=== PATIENT | female | born 1945 | race Caucasian/White ===

== ENCOUNTER 2018-09-06 22:16 | Emergency (ER) | payer OTHER ==
[2018-09-06 22:34] VITALS: BP 160/74; PULSE 77; TEMP 98; BMI 27.0
--- NOTE | 2018-09-06 23:26 | PDOC ---
*Physical Exam - Vital Signs Last Vital Signs Temp Pulse Resp BP Pulse Ox 98.0 F 77 16 160/74 100 09/06/18 22:26 09/06/18 22:26 09/06/18 22:26 09/06/18 22:26 09/06/18 22:26 Medical Decision Making - Medical Decision Making 09/06/18 23:25 Patient seen by the advanced practice provider under my direct supervision. Ancillary testing reviewed as necessary. I agree with plan as outlined by the advanced practice provider. *DC/Admit/Observation/Transfer Diagnosis at time of Disposition: Insect bite Qualifiers: Encounter type: initial encounter Site of insect bite: thigh Laterality: left Qualified Code(s): S70.362A - Insect bite (nonvenomous), left thigh, initial encounter - Discharge Dispostion Disposition: HOME - Prescriptions Prescriptions: Hydrocortisone 1% Ointment [Hytone 1% Ointment -] 1 applic TP BID #1 tube - Referrals Referrals: Mary Barber MD [Primary Care Provider] - 2 Days (wound check) - Patient Instructions Printed Discharge Instructions: DI for Insect Bites and Stings Additional Instructions: apply ice to the area apply hydrocortisone to the area as prescribed follow up with your doctor in 2 days for a wound check. - Post Discharge Activity
[2018-09-06] MEDS ORDERED: diphenhydrAMINE HCL 25 MG CAPSULE (FP) PO ONE ×2 (23:31→23:39)
--- NOTE | 2018-09-06 23:37 | PDOC ---
History of Present Illness - General Chief Complaint: Bite Stated Complaint: BITE Time Seen by Provider: 09/06/18 23:13 History Source: Patient - History of Present Illness Initial Comments: 09/06/18 23:32 73 year old female was putting her pajamas on felt an insect bite to left upper thigh prior to arrival. reports itchiness and stinging feeling at the site. no streaking noted pMHX: hypertension/ high cholesterol. 09/07/18 04:20 Past History - Past Medical History Allergies/Adverse Reactions: Allergies Allergy/AdvReac Type Severity Reaction Status Date / Time No Known Allergies Allergy Verified 09/06/18 22:28 Home Medications: Ambulatory Orders Leflunomide 20 mg PO DAILY 02/17/14 Montelukast Na [Singulair -] 10 mg PO DAILY 02/17/14 Omeprazole [Prilosec] 20 mg PO DAILY 02/17/14 Risperidone [Risperidone Odt] 3 mg PO BID 02/17/14 Aspirin [Ecotrin] 81 mg PO DAILY 12/21/14 Ranitidine [Zantac -] 150 mg PO BID 12/21/14 Fluticasone/Salmeterol [Advair 250-50 Diskus] 1 each IH BID 12/24/14 Paroxetine HCl [Paxil] 20 mg PO DAILY 12/24/14 Cholecalciferol (Vitamin D3) [Vitamin D] 5,000 unit PO DAILY 02/04/15 Losartan Potassium [Cozaar -] 100 mg PO DAILY 02/04/15 Prednisone 10 mg PO DAILY #30 tablet 02/11/15 Sotalol HCl [Betapace -] 80 mg PO BID #60 tablet 02/11/15 Famotidine [Pepcid] 40 mg PO DAILY #30 tablet MDD 1 01/06/16 Hydrocortisone 1% Ointment [Hytone 1% Ointment -] 1 applic TP BID #1 tube Asthma: Yes COPD: No Diabetes: Yes (BORDERLINE) GI Disorders: Yes (HEMORROIDS) HTN: Yes Hypercholesterolemia: Yes Psychiatric Problems: Yes (depression) - Suicide/Smoking/Psychosocial Hx Smoking Status: Yes Smoking History: Unknown if ever smoked Have you smoked in the past 12 months: No Number of Cigarettes Smoked Daily: 0 Information on smoking cessation initiated: No Hx Alcohol Use: No Drug/Substance Use Hx: No Substance Use Type: None Hx Substance Use Treatment: No Review of Systems - Review of Systems Able to Perform ROS?: Yes Is the patient limited Urdu proficient: No Constitutional: No: Symptoms Reported, See HPI, Chills, Diaphoresis, Fever, Loss of Appetite, Malaise, Night Sweats, Weakness, Weight Stable, Unintentional Wgt. Loss, Unexplained wgt Loss, Other Integumentary: Yes: Pruritus *Physical Exam - Vital Signs Last Vital Signs Temp Pulse Resp BP Pulse Ox 98.0 F 77 16 160/74 100 09/06/18 22:26 09/06/18 22:26 09/06/18 22:26 09/06/18 22:26 09/06/18 22:26 - Physical Exam General Appearance: Yes: Appropriately Dressed Extremity: positive: Erythema (to left upper thigh ) Integumentary: positive: Normal Color, Dry, Warm Neurologic: positive: Fully Oriented, Alert, Normal Mood/Affect Progress Note - Progress Note Progress Note: Insect bite P: hydrocortisone benadryl *DC/Admit/Observation/Transfer Diagnosis at time of Disposition: Insect bite Qualifiers: Encounter type: initial encounter Site of insect bite: thigh Laterality: left Qualified Code(s): S70.362A - Insect bite (nonvenomous), left thigh, initial encounter - Discharge Dispostion Disposition: HOME Condition at time of disposition: Stable - Prescriptions Prescriptions: Hydrocortisone 1% Ointment [Hytone 1% Ointment -] 1 applic TP BID #1 tube - Referrals Referrals: Mary Barber MD [Primary Care Provider] - 2 Days (wound check) - Patient Instructions Printed Discharge Instructions: DI for Insect Bites and Stings Additional Instructions: apply ice to the area apply hydrocortisone to the area as prescribed follow up with your doctor in 2 days for a wound check. - Post Discharge Activity
== END 2018-09-07 00:17 | disposition home or self-care (01) ==
LOC: JER 22:16
DX: S70.362A Insect bite (nonvenomous), left thigh, initial encounter (principal); W57.XXXA Bitten or stung by nonvenomous insect and other nonvenomous arthropods, initial encounter; Y93.89 Activity, other specified; Y92.032 Bedroom in apartment as the place of occurrence of the external cause; Y99.8 Other external cause status; I10 Essential (primary) hypertension; E78.00 Pure hypercholesterolemia, unspecified; E11.9 Type 2 diabetes mellitus without complications; J45.909 Unspecified asthma, uncomplicated
CPT/HCPCS: 99281-25

== ENCOUNTER 2018-11-17 16:18 | Emergency (ER) | payer OTHER ==
[2018-11-17 16:34] VITALS: BP 137/67; PULSE 67; TEMP 99.4; BMI 27.3
--- NOTE | 2018-11-17 16:35 | PDOC ---
Rapid Medical Evaluation Chief Complaint: Urinary Problem Time Seen by Provider: 11/17/18 16:29 Medical Evaluation: Allergies Allergy/AdvReac Type Severity Reaction Status Date / Time No Known Allergies Allergy Verified 09/06/18 22:28 11/17/18 16:30 73 year old female c/o urinary frequency, dysuria and suprapubis pain. treated for UTI 2 months ago. PE: patient alert ox3. A: urinary symptoms P: ua urine culture Discharge Disposition - Diagnosis Urinary frequency - Referrals - Patient Instructions - Post Discharge Activity
--- NOTE | 2018-11-17 16:50 | PDOC ---
History of Present Illness - General Chief Complaint: Urinary Problem Stated Complaint: URINARY PROBLEM Time Seen by Provider: 11/17/18 16:29 Past History - Past Medical History Allergies/Adverse Reactions: Allergies Allergy/AdvReac Type Severity Reaction Status Date / Time No Known Allergies Allergy Verified 11/17/18 16:34 Home Medications: Ambulatory Orders Leflunomide 20 mg PO DAILY 02/17/14 Montelukast Na [Singulair -] 10 mg PO DAILY 02/17/14 Omeprazole [Prilosec] 20 mg PO DAILY 02/17/14 Risperidone [Risperidone Odt] 3 mg PO BID 02/17/14 Aspirin [Ecotrin] 81 mg PO DAILY 12/21/14 Ranitidine [Zantac -] 150 mg PO BID 12/21/14 Fluticasone/Salmeterol [Advair 250-50 Diskus] 1 each IH BID 12/24/14 Paroxetine HCl [Paxil] 20 mg PO DAILY 12/24/14 Cholecalciferol (Vitamin D3) [Vitamin D] 5,000 unit PO DAILY 02/04/15 Losartan Potassium [Cozaar -] 100 mg PO DAILY 02/04/15 Prednisone 10 mg PO DAILY #30 tablet 02/11/15 Sotalol HCl [Betapace -] 80 mg PO BID #60 tablet 02/11/15 Famotidine [Pepcid] 40 mg PO DAILY #30 tablet MDD 1 01/06/16 Hydrocortisone 1% Ointment [Hytone 1% Ointment -] 1 applic TP BID #1 tube Acetaminophen [Tylenol -] 650 mg PO Q6H PRN #30 tablet 11/17/18 Cephalexin [Keflex] 500 mg PO BID #10 capsule 11/17/18 Phenazopyridine HCl [Pyridium] 100 mg PO BID #6 tablet 11/17/18 Asthma: Yes COPD: No Diabetes: Yes (BORDERLINE) GI Disorders: Yes (HEMORROIDS) HTN: Yes Hypercholesterolemia: Yes Psychiatric Problems: Yes (depression) Other medical history: ARTHRITIS - Immunization History Immunization Up to Date: Yes - Psycho Social/Smoking Cessation Hx Smoking Status: Yes Smoking History: Never smoked Have you smoked in the past 12 months: No Number of Cigarettes Smoked Daily: 0 Information on smoking cessation initiated: No Hx Alcohol Use: No Drug/Substance Use Hx: No Substance Use Type: None Hx Substance Use Treatment: No *Physical Exam - Vital Signs Last Vital Signs Temp Pulse Resp BP Pulse Ox 99.4 F 67 18 137/67 98 11/17/18 16:28 11/17/18 16:28 11/17/18 16:28 11/17/18 16:28 11/17/18 16:28 ED Treatment Course - LABORATORY CBC & Chemistry Diagram: 11/17/18 17:35 11/17/18 17:35 Medical Decision Making - Medical Decision Making HPI: 73yo F with PMH of HTN, HLD, asthma, arthritis presenting with urinary symptoms since Wednesday. Patient had similar symptoms two months ago when she was diagnosed with a UTI and treated with antibiotics x 10 days (does not know which ). She finished the entire course and felt better, however, the dysuria, urgency , and retention has returned. She urinates about three times during the day and twice at night. Endorsing generalized weakness and poor appetite. No hematuria. Denies fevers, chills, chest pain, or shortness of breath. PCP: Dr. Bedoya ROS: Constitutional: no fever, no chills HEENT: no throat pain, no dysphagia Cardiovascular: no chest pain, no palpitations Respiratory: no cough, no shortness of breath Gastrointestinal: +abdominal pain, no nausea Genitourinary: +dysuria, +retention Musculoskeletal: no myalgia, no arthralgia Skin: no rash, no itching Neurologic: no headache, +weakness PE: General: Awake, alert, and fully oriented, in no acute distress Head: No signs of trauma Eyes: EOMI, sclera anicteric ENT: Moist mucus membranes Neck: Normal ROM, supple Lungs: Lungs clear, Normal breath sounds Cardio: Regular rhythm, S1 and S2 present Abdomen: Tender to palpation in suprapubic area, Soft, nondistended. No guarding , no rebound, no masses. No CVA tenderness Extremities: Normal range of motion, Distal pulses present SKIN: Warm, Dry, normal turgor Neurologic: Cranial nerves II through XII grossly intact. Normal speech ED Course/MDM: DDX including but not limited to UTI, pyelonephritis, nephrolithisis, bladder CA , PID, urethritis, interstitial cystitis Labs 11/17/18 16:50 Per chart review, patient never had positive urine culture here Call over to [facility] to ascertain previous antibiotic course Patient received Bactrim x 10 days, filled on 10/03/18 Since she received bactrim in the prior 3 months, we will treat with another antibiotic 11/17/18 17:17 CBC WBC 9.8 K/mm3 (4.0-10.0) 11/17/18 17:35 RBC 4.11 M/mm3 (3.60-5.2) 11/17/18 17:35 Hgb 11.4 GM/dL (10.7-15.3) 11/17/18 17:35 Hct 34.3 % (32.4-45.2) 11/17/18 17:35 MCV 83.3 fl (80-96) 11/17/18 17:35 MCH 27.8 pg (25.7-33.7) 11/17/18 17:35 MCHC 33.3 g/dl (32.0-36.0) 11/17/18 17:35 RDW 14.3 % (11.6-15.6) 11/17/18 17:35 Plt Count 170 K/MM3 (134-434) 11/17/18 17:35 MPV 8.2 fl (7.5-11.1) 11/17/18 17:35 Absolute Neuts (auto) 6.2 K/mm3 (1.5-8.0) 11/17/18 17:35 Neutrophils % 63.9 % (42.8-82.8) D 11/17/18 17:35 Lymphocytes % 26.1 % (8-40) D 11/17/18 17:35 Monocytes % 8.4 % (3.8-10.2) 11/17/18 17:35 Eosinophils % 0.9 % (0-4.5) 11/17/18 17:35 Basophils % 0.7 % (0-2.0) 11/17/18 17:35 Nucleated RBC % 0 % (0-0) 11/17/18 17:35 No leukocytosis UA with 1+ protein, 2+ blood, + nitrite, 3+ LE, 6032 bacteria, 1.4 epithelias We will treat with keflex 11/17/18 18:01 CMP Sodium 137 mmol/L (136-145) 11/17/18 17:35 Potassium 4.2 mmol/L (3.5-5.1) 11/17/18 17:35 Chloride 105 mmol/L (98-107) 11/17/18 17:35 Carbon Dioxide 23 mmol/L (21-32) 11/17/18 17:35 Anion Gap 9 MMOL/L (8-16) 11/17/18 17:35 BUN 23.2 mg/dL (7-18) H 11/17/18 17:35 Creatinine 0.8 mg/dL (0.55-1.3) 11/17/18 17:35 Est GFR (CKD-EPI)AfAm 83.59 11/17/18 17:35 Est GFR (CKD-EPI)NonAf 72.12 11/17/18 17:35 Random Glucose 98 mg/dL (74-106) 11/17/18 17:35 Calcium 9.6 mg/dL (8.5-10.1) 11/17/18 17:35 Total Bilirubin 0.6 mg/dL (0.2-1) 11/17/18 17:35 AST 18 U/L (15-37) 11/17/18 17:35 ALT 24 U/L (13-61) 11/17/18 17:35 Alkaline Phosphatase 106 U/L (45-117) 11/17/18 17:35 Total Protein 8.0 g/dl (6.4-8.2) 11/17/18 17:35 Albumin 4.2 g/dl (3.4-5.0) 11/17/18 17:35 Electrolytes unremarkable Normal Cr BUn elevated, at patient's baseline Keflex, pyridium, and tylenol sent to pharmacy Dysuria caused by confirmed UTI I do not suspect an obstructive urologic process; patient is hemodynamically stable and able to tolerate po. Safe for discharge. 11/17/18 18:37 Discharge - Discharge Information Problems reviewed: Yes Clinical Impression/Diagnosis: UTI (urinary tract infection) Qualifiers: Urinary tract infection type: site unspecified Hematuria presence: with hematuria Qualified Code(s): N39.0 - Urinary tract infection, site not specified ; R31.9 - Hematuria, unspecified Condition: Stable Disposition: HOME - Additional Discharge Information Prescriptions: Acetaminophen [Tylenol -] 650 mg PO Q6H PRN #30 tablet PRN Reason: Pain Cephalexin [Keflex] 500 mg PO BID #10 capsule Phenazopyridine HCl [Pyridium] 100 mg PO BID #6 tablet - Follow up/Referral Referrals: Leeanna Bedoya MD [Primary Care Provider] - - Patient Discharge Instructions Patient Printed Discharge Instructions: DI for Urinary Tract Infection (UTI) Additional Instructions: You came into the emergency department for pain when you urinate. Urinalysis shows you have a urinary tract infection. Antibiotics prescription has been sent to your pharmacy. We also sent a medicine called aiden to help with the burning when you urinate. Be aware that this medicine may turn your urine orange. Follow up with your primary care physician within 72 hours to discuss this ED visit and for further evaluation of your symptoms. Call tomorrow morning and make an appointment. Your care is not complete until you do so. Immediate medical attention is required if you experience: high fevers, chills , persistent vomiting, stop urinating, or any new or concerning symptoms.If you think you have an emergency, call for medical help right away. === Lleg al departamento de emergencias por dolor al orinar. El anlisis de orina muestra que tiene ronal infeccin del tracto urinario. Se dasilva enviado ronal receta de antibiticos a mendoza farmacia. Tambin enviamos un medicamento llamado piridio para ayudar con el ardor al orinar. Tenga en cuenta que paz medicamento puede convertir mendoza orina en naranja. Yakelin un seguimiento con mendoza mdico de atencin primaria dentro de las 72 horas para analizar esta visita al servicio de urgencias y para ronal evaluacin adicional de corey sntomas. Llame maana por la maana y yakelin ronal bashir. Mendoza atencin no estar completa hasta que lo yakelin. Se requiere atencin mdica inmediata si experimenta fiebre rico, escalofros, vmitos persistentes, maximilian de orinar o cualquier sntoma nuevo o preocupante. Si mary que tiene ronal emergencia, solicite ayuda mdica de inmediato. - Post Discharge Activity
--- NOTE | 2018-11-17 16:58 | PDOC ---
Attending Attestation - Resident Resident Name: Yoanna Medrano - ED Attending Attestation I have performed the following: I have examined & evaluated the patient, The case was reviewed & discussed with the resident, I agree w/resident's findings & plan - HPI HPI: 11/17/18 17:15 73 YOF with htn/hld, asthma , UTI 2 months ago presenting with urinary frequency , urgency, dysuria and suprapubic abdominal pain. - Physicial Exam PE: 11/17/18 17:16 Agree with the resident's HPI and PE as documented in the electronic medical record. NAD, well appearing, EOMI, PERRL, MMM, nl conjunctiva, anicteric; neck supple. lungs clear, RRR, abdomen soft suprapubic TTP, no CVAT. no rebound or guarding. Back nontender. CERDA x4, no focal neuro deficits. No peripheral edema. normal color for ethnicity, WWP. right club foot (chronic) 11/17/18 18:15 - Medical Decision Making 11/17/18 17:16 Vital Signs Temp Pulse Resp BP Pulse Ox 99.4 F 67 18 137/67 98 11/17/18 16:28 11/17/18 16:28 11/17/18 16:28 11/17/18 16:28 11/17/18 16:28 no fever, VS reviewed and anl UA and culture sent prelim UA +nitrites, WBC and leuk esterase, librado with E.coli infection given + nitrites. labs and lytes unremarkable. no systemic findings to suggest complicated infection keflex x 5 days pyridium for burning/dysuria. caution of side effects. discharge stable condition. return precautions such as f/c, worsening pain, vomiting, dehydration. PCP followup, f/u urine culture antibiotics x 5d course. 11/17/18 18:05 11/17/18 18:15 11/17/18 18:16
[2018-11-17 17:47] LABS: BASO % 0.7 % (0-2.0); EOS % 0.9 % (0-4.5); HEMATOCRIT 34.3 % (32.4-45.2); HEMOGLOBIN 11.4 GM/dL (10.7-15.3); LYMPH % 26.1 % (8-40); MCH 27.8 pg (25.7-33.7); MCHC 33.3 g/dl (32.0-36.0); MEAN CELL VOLUME 83.3 fl (80-96); MEAN PLT VOLUME 8.2 fl (7.5-11.1); MONO % 8.4 % (3.8-10.2); NEUT % 63.9 % (42.8-82.8); PLATELET COUNT 170 K/MM3 (134-434); RBC 4.11 M/mm3 (3.60-5.2); RDW 14.3 % (11.6-15.6); WHITE BLOOD COUNT 9.8 K/mm3 (4.0-10.0)
[2018-11-17 17:54] LABS: EPI CELLS 1.4 /HPF (0-5/HPF); HYALINE CASTS 6 /lpf (0-8); PH,URINE 6.5 (5.0-8.0); URINE APPEARANCE CLOUDY; URINE BACTERIA 6032.8 /hpf (NEGATIVE); URINE BILIRUBIN NEGATIVE (NEGATIVE); URINE COLOR YELLOW; URINE GLUCOSE (UA) NEGATIVE (NEGATIVE); URINE KETONE NEGATIVE (NEGATIVE); URINE LEUK ESTERASE 3+ (NEGATIVE); URINE NITRITE POSITIVE (NEGATIVE); URINE PROTEIN 1+ (NEGATIVE); URINE RBC 10 /hpf (0-4); URINE UROBILINOGEN 0.2 mg/dL (0.2-1.0); URINE WBC 403 /hpf (0-5)
[2018-11-17] MEDS ORDERED: CEPHALEXIN MONOHYDRATE 500 MG CAPSULE (UD) ONE ×2 (17:58→18:24)
[2018-11-17] MEDS ORDERED: CEPHALEXIN MONOHYDRATE 500 MG CAPSULE (UD) PO ONE (18:06)
[2018-11-17] MEDS ORDERED: ACETAMINOPHEN 325 MG TABLET (FP) PO ONE (18:17)
[2018-11-17] MEDS ORDERED: PHENAZOPYRIDINE HCL 100 MG TABLET (FP) PO ONE ×2 (18:17→18:30)
[2018-11-17 18:23] LABS: ALBUMIN 4.2 g/dl (3.4-5.0); BILIRUBIN,TOTAL 0.6 mg/dL (0.2-1); BLOOD UREA NITROGEN 23.2 mg/dL (7-18); CALCIUM 9.6 mg/dL (8.5-10.1); CREATININE 0.8 mg/dL (0.55-1.3); POTASSIUM 4.2 mmol/L (3.5-5.1)
[2018-11-17] MEDS ORDERED: ACETAMINOPHEN 325 MG TABLET (FP) ONE (18:40)
[2018-11-17] MEDS ORDERED: PHENAZOPYRIDINE HCL 100 MG TABLET (FP) ONE (18:41)
== END 2018-11-17 18:32 | disposition home or self-care (01) ==
LOC: JER 16:18
DX: N39.0 Urinary tract infection, site not specified (principal); R31.9 Hematuria, unspecified; I10 Essential (primary) hypertension; E78.5 Hyperlipidemia, unspecified; J45.909 Unspecified asthma, uncomplicated; M12.9 Arthropathy, unspecified; Z87.440 Personal history of urinary (tract) infections
CPT/HCPCS: 36415; 80053; 81003; 85025; 87086; 87186; 99282-25

== ENCOUNTER 2023-06-24 18:02 | Inpatient (IN) | payer OTHER ==
[2023-06-24 18:07] VITALS: BMI 25.7
[2023-06-24] MEDS ORDERED: ACETAMINOPHEN INJECTION 100 ML IVPB ONE (18:50)
[2023-06-24] MEDS: ACETAMINOPHEN 1000 MG/100 ML BAG IVPB ONE (19:11)
[2023-06-24 19:16] LABS: BASO % 0.4 % (0-2.0); EOS % 0.8 % (0-4.5); HEMATOCRIT 36.2 % (32.4-45.2); HEMOGLOBIN 12.2 GM/dL (10.7-15.3); LYMPH % 12.1 % (8-40); MCH 27.9 pg (25.7-33.7); MCHC 33.8 g/dl (32.0-36.0); MEAN CELL VOLUME 82.5 fl (80-96); MONO % 6.2 % (3.8-10.2); NEUT % 80.5 % (42.8-82.8); PLATELET COUNT 180 10^3/uL (134-434); RBC 4.38 M/mm3 (3.60-5.2)
[2023-06-24] MEDS: SODIUM CHLORIDE 0.9% 500 ML INFUS.BAG IV ONE (19:22)
[2023-06-24 19:42] LABS: POTASSIUM 4.1 mmol/L (3.5-5.1)
[2023-06-24 19:45] LABS: CALCIUM 9.6 mg/dL (8.5-10.1)
[2023-06-24 19:46] LABS: ALBUMIN 4.2 g/dl (3.4-5.0); BLOOD UREA NITROGEN 27.6 mg/dL (7-18)
[2023-06-24 19:50] LABS: BILIRUBIN,TOTAL 0.7 mg/dL (0.2-1); TOT PROT 8.5 g/dl (6.4-8.2)
[2023-06-24] MEDS ORDERED: KETOROLAC TROMETHAMINE 15 MG/ML VIAL ONE (20:06)
[2023-06-24] MEDS: KETOROLAC TROMETHAMINE 15 MG/ML VIAL IVPUSH ONE (20:12)
[2023-06-24 21:17] LABS: EPI CELLS 8 /uL (0-25.1); HYALINE CASTS 0 /uL (0-3.1); URINE APPEARANCE CLEAR; URINE BACTERIA 12 /uL (0-1359); URINE BILIRUBIN NEGATIVE (NEGATIVE); URINE COLOR YELLOW; URINE GLUCOSE (UA) NEGATIVE (NEGATIVE); URINE KETONE NEGATIVE (NEGATIVE); URINE LEUK ESTERASE 1+ (NEGATIVE); URINE NITRITE NEGATIVE (NEGATIVE); URINE PROTEIN TRACE (NEGATIVE); URINE RBC 138 /uL (0-23.9); URINE UROBILINOGEN 0.2 mg/dL (0.2-1.0); URINE WBC 15 /uL (0-25.8)
[2023-06-24] MEDS: AZITHROMYCIN IVPB 500 MG in DEXTROSE 5%-WATER - 250 ML IVPB ONE (22:36)
[2023-06-24] MEDS: CEFTRIAXONE 1 GM in DEXTROSE 5%-WATER - 100 ML IVPB ONE (22:36)
[2023-06-24] MEDS ORDERED: CEFTRIAXONE 1 GM/50 ML BAG ONE (22:37)
[2023-06-24] MEDS ORDERED: AZITHROMYCIN IVPB 500 MG/250 ML BAG IVPB ONE (22:37)
[2023-06-25] MEDS ORDERED: ALBUTEROL SO4 HFA INHALER IH PRN (00:34)
[2023-06-25] MEDS: SODIUM CHLORIDE 1,000 ML IV SCH (01:27)
[2023-06-25] MEDS: methylPREDNISolone NA SUCC 40 MG/1 ML VIAL IVPB SCH (01:27)
[2023-06-25] MEDS ORDERED: methylPREDNISolone NA SUCC 40 MG/1 ML VIAL ONE (01:31)
[2023-06-25] MEDS: ACETAMINOPHEN 325 MG TABLET (FP) PO PRN (02:48)
[2023-06-25] MEDS: methylPREDNISolone NA SUCC 1000 MG/8 ML VIAL IVPB ONE (08:25)
[2023-06-25 09:29] LABS: BASO % 0.1 % (0-2.0); HEMATOCRIT 31.8 % (32.4-45.2); HEMOGLOBIN 10.8 GM/dL (10.7-15.3); LYMPH % 6.8 % (8-40); MCHC 33.9 g/dl (32.0-36.0); MEAN CELL VOLUME 82.5 fl (80-96); MEAN PLT VOLUME 8.6 fl (7.5-11.1); MONO % 2.4 % (3.8-10.2); NEUT % 90.7 % (42.8-82.8); PLATELET COUNT 137 10^3/uL (134-434); RBC 3.85 M/mm3 (3.60-5.2); RDW 14.9 % (11.6-15.6); WHITE BLOOD COUNT 12.5 K/mm3 (4.0-10.0)
[2023-06-25] MEDS: HYDROCHLOROTHIAZIDE 25 MG TABLET (FP) PO SCH (09:43)
[2023-06-25] MEDS: LISINOPRIL 20 MG TABLET PO SCH (09:43)
[2023-06-25] MEDS: ENOXAPARIN NA (PORCINE) 40 MG/0.4 ML DISP.SYRIN SQ SCH (09:43)
[2023-06-25] MEDS: CEFTRIAXONE 1 GM in DEXTROSE 5%-WATER - 50 ML IVPB SCH (09:43)
[2023-06-25] MEDS: AZITHROMYCIN 250 MG TABLET PO SCH (09:43)
[2023-06-25 09:51] LABS: POTASSIUM 3.8 mmol/L (3.5-5.1)
[2023-06-25] MEDS ORDERED: PATIENT'S OWN MEDICATION (NON-FORMULARY) (Lisinopril/Hydrochlorothiazide [Lisinopril-Hctz PO SCH (10:00)
[2023-06-25 10:01] LABS: ALBUMIN 3.4 g/dl (3.4-5.0); BLOOD UREA NITROGEN 18.6 mg/dL (7-18)
[2023-06-25 10:04] LABS: CREATININE 0.8 mg/dL (0.55-1.3); PHOSPHOROUS 2.5 mg/dL (2.5-4.9)
[2023-06-25 10:05] LABS: TOT PROT 7.5 g/dl (6.4-8.2)
[2023-06-25] MEDS: BUDESONIDE/FORMETEROL FUMARATE 80/4.5 mcg INHALER IH SCH (17:34)
[2023-06-25] MEDS: MONTELUKAST NA 10 MG TABLET PO SCH (21:13)
[2023-06-26] MEDS: ALBUTEROL SO4 2.5/IPRATROPIUM 0.5 INH SOL 3 ML VIAL.NEB. NEB PRN (00:43)
[2023-06-26 09:05] LABS: BASO % 0.2 % (0-2.0); HEMATOCRIT 31.2 % (32.4-45.2); HEMOGLOBIN 10.3 GM/dL (10.7-15.3); LYMPH % 10.6 % (8-40); MCH 27.4 pg (25.7-33.7); MEAN PLT VOLUME 8.8 fl (7.5-11.1); MONO % 4.2 % (3.8-10.2); PLATELET COUNT 159 10^3/uL (134-434); RBC 3.76 M/mm3 (3.60-5.2); RDW 14.8 % (11.6-15.6); WHITE BLOOD COUNT 15.4 K/mm3 (4.0-10.0)
[2023-06-26 09:26] LABS: POTASSIUM 3.4 mmol/L (3.5-5.1)
[2023-06-26 09:28] LABS: CALCIUM 8.8 mg/dL (8.5-10.1)
[2023-06-26 09:29] LABS: ALBUMIN 3.3 g/dl (3.4-5.0); BLOOD UREA NITROGEN 20.8 mg/dL (7-18)
[2023-06-26 09:32] LABS: CREATININE 0.8 mg/dL (0.55-1.3)
[2023-06-26 09:33] LABS: BILIRUBIN,TOTAL 0.5 mg/dL (0.2-1); TOT PROT 7.1 g/dl (6.4-8.2)
[2023-06-26] MEDS: guaiFENesin 200 MG/10 ML 10 ML UNIT-DOSE CUPS PO PRN (09:56)
[2023-06-26] MEDS: POLYETHYLENE GLYCOL (HEALTHYLAX) 3350 17 GM PACKET PO SCH (10:14)
[2023-06-26] MEDS: ALBUTEROL SO4 2.5/IPRATROPIUM 0.5 INH SOL 3 ML VIAL.NEB. NEB SCH (11:40)
[2023-06-27] MEDS: BENZONATATE 200 MG CAPSULE PO SCH (10:43)
[2023-06-28 09:21] LABS: HEMATOCRIT 32.2 % (32.4-45.2); MCH 28.2 pg (25.7-33.7); MCHC 34.3 g/dl (32.0-36.0); MEAN CELL VOLUME 82.4 fl (80-96); MEAN PLT VOLUME 8.5 fl (7.5-11.1); PLATELET COUNT 197 10^3/uL (134-434); RBC 3.91 M/mm3 (3.60-5.2); RDW 15.2 % (11.6-15.6); WHITE BLOOD COUNT 9.8 K/mm3 (4.0-10.0)
[2023-06-28 09:33] LABS: POTASSIUM 3.8 mmol/L (3.5-5.1)
[2023-06-28 09:38] LABS: CALCIUM 9.1 mg/dL (8.5-10.1)
[2023-06-28 09:39] LABS: BLOOD UREA NITROGEN 21.4 mg/dL (7-18)
[2023-06-28 09:42] LABS: CREATININE 0.7 mg/dL (0.55-1.3)
[2023-06-28 10:01] LABS: ANISOCYTOSIS 0; HELMET CELLS 0; HOWELL-JOLLY BODIES 0; MACROCYTOSIS 0; OVALOCYTE 0; ROULEAU 0; SICKELED CELLS 0; TARGET CELLS 0; TEAR DROP CELLS 0; TOXIC GRANULATION 0
[2023-06-28 14:08] VITALS: BP 142/86; PULSE 101; RESP 20; TEMP 98.8
== END 2023-06-28 16:37 | disposition home or self-care (01) | DRG 871 ==
LOC: JER 18:02 → JERBED 21:40 → OBSVTOIN 06-25 00:31 → J7W 06-25 01:51
PROVIDERS: ADMIT Internal Medicine; ATTEND Nurse Practitioner
DX: A41.9 Sepsis, unspecified organism (principal); J18.9 Pneumonia, unspecified organism; J45.901 Unspecified asthma with (acute) exacerbation; I10 Essential (primary) hypertension
CPT/HCPCS: 0241U-QW; 36415; 71046-TC-FY; 74176-TC; 80048; 80053; 81003; 83605; 83735; 84100; 85025; 87040; 87086; 93005; 93010; 94640; 97116-GP; 97162-GP; 99285-25; G0378; J0131

== ENCOUNTER 2024-01-19 17:59 | Emergency (ER) | payer OTHER ==
[2024-01-19 18:15] VITALS: BP 133/72; PULSE 90; RESP 22; TEMP 100.5; BMI 24.7
[2024-01-19 18:56] LABS: VENOUS BASE EXCESS -1.1 mmol/L (-2-2); VENOUS O2 SATURATION 65.9 % (70-80); VENOUS PCO2 36.1 mmHg (38-52); VENOUS PH 7.421 (7.310-7.410)
[2024-01-19 19:02] LABS: BASO % 0.2 % (0-2.0); EOS % 0.6 % (0-4.5); HEMATOCRIT 33.9 % (32.4-45.2); HEMOGLOBIN 11.5 GM/dL (10.7-15.3); LYMPH % 19.6 % (8-40); MCH 27.7 pg (25.7-33.7); MCHC 33.9 g/dl (32.0-36.0); MEAN CELL VOLUME 81.8 fl (80-96); MEAN PLT VOLUME 9.2 fl (7.5-11.1); MONO % 10.5 % (3.8-10.2); NEUT % 69.1 % (42.8-82.8); PLATELET COUNT 248 10^3/uL (134-434); RBC 4.15 M/mm3 (3.60-5.2); RDW 14.6 % (11.6-15.6); WHITE BLOOD COUNT 8.9 K/mm3 (4.0-10.0)
[2024-01-19 19:09] LABS: INR 1.13 (0.83-1.09); PROTHROMBIN TIME (PATIENT) 12.7 SEC (9.7-13.0)
[2024-01-19] MEDS ORDERED: ACETAMINOPHEN INJECTION 100 ML ONE (19:10)
[2024-01-19 19:12] LABS: ACTIVATED PTT 21.2 SECONDS (25.2-36.5)
[2024-01-19] MEDS: ACETAMINOPHEN 1000 MG/100 ML BAG IVPB ONE (19:19)
[2024-01-19 19:37] LABS: POTASSIUM 3.9 mmol/L (3.5-5.1)
[2024-01-19 19:39] LABS: ALBUMIN 3.8 g/dl (3.4-5.0); CALCIUM 9.1 mg/dL (8.5-10.1)
[2024-01-19 19:42] LABS: CREATININE 1.2 mg/dL (0.55-1.3)
[2024-01-19 20:13] LABS: HIV INTERPRETATION NEGATIVE (NEGATIVE)
== END 2024-01-19 20:18 | disposition home or self-care (01) ==
LOC: JER 17:59
PROC: 3E033NZ Introduction of Analgesics, Hypnotics, Sedatives into Peripheral Vein, Percutaneous Approach (ICD-10-PCS; principal; 2024-01-19)
DX: R06.02 Shortness of breath (principal); J06.9 Acute upper respiratory infection, unspecified; R05.9 Cough, unspecified; R50.9 Fever, unspecified; R63.0 Anorexia; R53.81 Other malaise; J02.9 Acute pharyngitis, unspecified; Z20.822 Contact with and (suspected) exposure to COVID-19
CPT/HCPCS: 0241U-QW; 36415; 71045-TC-FY; 80053; 82803; 83605; 84484; 85025; 85610; 85730; 86803; 86850; 86900; 86901; 87040; 87389; 93005; 93010; 96374; 99285-25; J0131